=== PATIENT | female | born 1995 | race Caucasian/White ===

== ENCOUNTER 2018-01-26 12:09 | Emergency (ER) | payer OTHER ==
[~2018-01-26] VITALS: Ht 162.6 cm; Wt 77.3 kg
[2018-01-26 12:14] VITALS: BP 149/94; TEMP 97.6
[2018-01-26] MEDS ORDERED: SINGULAIR 110 MG/TAB PO (12:44)
[2018-01-26] MEDS ORDERED: ALDACTONE 25MG25 M1 PO (12:44)
[2018-01-26] MEDS ORDERED: XYZAL5 MG PO (12:44)
[2018-01-26] MEDS ORDERED: LAMICTAL 25MG T25 MG PO (12:45)
[2018-01-26] MEDS ORDERED: AMITRIPTYLINE H25 M1 PO (12:45)
[2018-01-26] MEDS ORDERED: ZOLOFT 25MG25 MG PO (12:46)
[2018-01-26 12:49] LABS: COLLECTION METHOD CLEAN CATCH
[2018-01-26 13:07] LABS: MUCOUS Present /lpf; PH 5 (5-8); URINE APPEARANCE Cloudy; URINE BACTERIA Rare /hpf; URINE BILIRUBIN Negative (NEGATIVE); URINE BLOOD 3+ (NEGATIVE); URINE COLOR Yellow; URINE GLUCOSE Negative (NEGATIVE); URINE KETONE 2+ (NEGATIVE); URINE LEUKOCYTE ESTERASE Negative (NEGATIVE); URINE NITRATE Negative (NEGATIVE); URINE PROTEIN(semi-quant) 1+ (NEGATIVE); URINE UROBILINOGEN Negative (NEGATIVE)
[2018-01-26 13:52] LABS: BASO # 0.1 (0.0-0.2); BASO % 0.5 % (0.0-2.0); EOS # 0.1 (0.0-0.7); EOS % 0.5 % (0-4.0); GRAN # 7.2 (1.4-6.5); GRAN % 75.2 % (42.2-75.2); HEMATOCRIT 49.1 % (37.0-47.0); HEMOGLOBIN 17.3 g/dl (12.5-16.0); LYMPH # 1.7 (1.2-3.4); LYMPH % 17.7 % (20.0-51.0); MEAN CELL VOLUME 87 fl (80.0-100.0); MEAN CORPUSCULAR HEMOGLOBIN 31 pg (27.0-31.0); MEAN CORPUSCULAR HGB CONC 35 g/dl (33.0-37.0); MONO # 0.6 (0.1-0.6); MONO % 5.8 % (1.7-9.3); PLATELET COUNT 370 K/mm3 (130-400); RED BLOOD COUNT 5.64 M/mm3 (4.10-5.30); REDCELL DISTRIBUTION WIDTH-CV 11.6 % (11.5-14.5)
[2018-01-26 14:08] LABS: ALBUMIN 5.4 gm/dL (3.5-5.0); BILIRUBIN,TOTAL 1.9 mg/dL (0.0-1.0); C-REACTIVE PROTEIN 1.1 mg/dL (0.0-0.9); CREATININE, serum 0.78 mg/dL (0.52-1.25)
[2018-01-26 16:02] LABS: COLLECTION METHOD CATHETER
[2018-01-26 16:30] LABS: MUCOUS Present /lpf; PH 6 (5-8); URINE APPEARANCE Clear; URINE BACTERIA None Seen /hpf; URINE BILIRUBIN Negative (NEGATIVE); URINE BLOOD 2+ (NEGATIVE); URINE COLOR Straw; URINE GLUCOSE Negative (NEGATIVE); URINE KETONE 2+ (NEGATIVE); URINE LEUKOCYTE ESTERASE Negative (NEGATIVE); URINE NITRATE Negative (NEGATIVE); URINE PROTEIN(semi-quant) Negative (NEGATIVE); URINE UROBILINOGEN Negative (NEGATIVE)
[2018-01-26] MEDS ORDERED: ZOFRAN ODT4 MG PO (18:01)
[2018-01-26] MEDS ORDERED: PHENERGAN 25 TA25 MG PO (18:01)
[2018-01-26 18:37] VITALS: PULSE 56
== END 2018-01-26 18:37 | disposition home or self-care (01) ==
LOC: COL.ER 12:09
PROVIDERS: Emergency Medicine; Nurse Practitioner
DX: R11.10 Vomiting, unspecified (principal); R10.31 Right lower quadrant pain; J45.909 Unspecified asthma, uncomplicated; F32.9 Major depressive disorder, single episode, unspecified
CPT/HCPCS: J1170; J2405; J2550; J7030; Q9967

== ENCOUNTER 2018-08-30 14:24 | Emergency (ER) | payer SELFPAY ==
[~2018-08-30] VITALS: Ht 162.6 cm; Wt 75.0 kg
[~2018-08-30 14:24] MED LIST: ALDACTONE 25MG25 M1 PO; AMITRIPTYLINE H25 M1 PO; LAMICTAL 25MG T25 MG PO; PHENERGAN 25 TA25 MG PO; SINGULAIR 110 MG/TAB PO; XYZAL5 MG PO; ZOFRAN ODT4 MG PO; ZOLOFT 25MG25 MG PO
[2018-08-30 14:32] VITALS: TEMP 97.6
[2018-08-30 14:49] LABS: COLLECTION METHOD CLEAN CATCH
[2018-08-30 15:16] LABS: BASO # 0.1 (0.0-0.2); BASO % 0.6 % (0.0-2.0); EOS # 0.2 (0.0-0.7); EOS % 1.5 % (0-4.0); GRAN # 8.2 (1.4-6.5); GRAN % 68.2 % (42.2-75.2); HEMATOCRIT 45.4 % (37.0-47.0); HEMOGLOBIN 15.7 g/dl (12.5-16.0); LYMPH # 2.7 (1.2-3.4); LYMPH % 22.6 % (20.0-51.0); MEAN CELL VOLUME 89 fl (80.0-100.0); MEAN CORPUSCULAR HEMOGLOBIN 31 pg (27.0-31.0); MEAN CORPUSCULAR HGB CONC 35 g/dl (33.0-37.0); MEAN PLATELET VOLUME 8.5 fl (7.4-10.4); MONO # 0.8 (0.1-0.6); MONO % 6.8 % (1.7-9.3); PLATELET COUNT 349 K/mm3 (130-400); RED BLOOD COUNT 5.12 M/mm3 (4.10-5.30); REDCELL DISTRIBUTION WIDTH-CV 11.6 % (11.5-14.5)
[2018-08-30 15:24] LABS: AMORPHOUS CRYSTAL Present /uL; MUCOUS Present /lpf; PH 6 (5-8); URINE APPEARANCE Cloudy; URINE BACTERIA Rare /hpf; URINE BILIRUBIN Negative (NEGATIVE); URINE BLOOD Negative (NEGATIVE); URINE COLOR Yellow; URINE GLUCOSE Negative (NEGATIVE); URINE KETONE 2+ (NEGATIVE); URINE LEUKOCYTE ESTERASE Negative (NEGATIVE); URINE NITRATE Negative (NEGATIVE); URINE PROTEIN(semi-quant) Negative (NEGATIVE)
[2018-08-30 15:29] LABS: ALANINE AMINOTRANSFERASE 14 U/L (9-52); ALBUMIN 4.9 gm/dL (3.5-5.0); ALKALINE PHOSPHATASE 71 U/L (50-136); ANION GAP 14 mmol/L (7-16); AST,SGOT 22 U/L (15-37); BILIRUBIN,TOTAL 1.4 mg/dL (0.0-1.0); BLOOD UREA NITROGEN 12 mg/dL (7-17); CARBON DIOXIDE 24 mmol/L (22-30); CHLORIDE 102 mmol/L (98-107); CREATININE, serum 0.69 (0.52-1.25); GLUCOSE 96 mg/dL (74-106); POTASSIUM 4.2 mmol/L (3.4-5.0); SODIUM 140 mmol/L (137-145)
[2018-08-30 15:37] LABS: C-REACTIVE PROTEIN < 0.5 mg/dL (0.0-0.9)
[2018-08-30] MEDS ORDERED: ZOLOFT 50MG50 MG PO (15:56)
[2018-08-30 16:47] VITALS: BP 127/71; PULSE 81
== END 2018-08-30 16:48 | disposition home or self-care (01) ==
LOC: COL.ER 14:24
PROVIDERS: Physician Assistant
DX: O21.9 Vomiting of pregnancy, unspecified (principal); Z3A.00 Weeks of gestation of pregnancy not specified; Z88.1 Allergy status to other antibiotic agents
CPT/HCPCS: J2405; J2550; J7030

== ENCOUNTER 2019-04-18 11:28 | Outpatient (CLI) | payer BC ==
[~2019-04-18] VITALS: Ht 162.6 cm; Wt 89.5 kg
[~2019-04-18 11:28] MED LIST changes: +ZOLOFT 50MG50 MG PO
[2019-04-18 11:36] VITALS: BP 140/82; PULSE 78; TEMP 97.6
[2019-04-18] MEDS ORDERED: PRENATAL TABLET PO (11:36)
--- NOTE | 2019-04-18 11:50 | NUR ---
G1 at 37.3 weeks gestation to LDR2. Patient was sent from the office after she had an ultrasound that showed decreased movement and boarderline low amniotic fluid. Patient is anxious and tearful, plan of care reviewed. Patient changed into gown, wedged to left side in bed. EFMs explained and applied, FHR 140 bpm and reactive. Irregular CTX per toco, patient denies feeling them. VSS. Assessment completed. Patient c/o frequent nausea and vomiting throughout . Patient also states that she felt a gush of fluid yesterday evening. SVE closed/50/high, no fluid noted, amniotrace negative. 1150 Dr. Sanchez to room, FHR strip reviewed, plan of care discussed. Orders to start IV and give 1 liter LR bolus and 8 mg of zofran IV, CBC, CMP, and clean catch UA.
[2019-04-18 12:50] VITALS: BP 142/62; PULSE 80
[2019-04-18 13:00] LABS: COLLECTION METHOD CLEAN CATCH
[2019-04-18 13:04] LABS: BASO % 0.4 % (0.0-2.0); EOS # 0.5 (0.0-0.7); EOS % 4.1 % (0-4.0); GRAN # 8.1 (1.4-6.5); HEMOGLOBIN 10.5 g/dl (12.5-16.0); LYMPH # 1.7 (1.2-3.4); LYMPH % 15.4 % (20.0-51.0); MEAN CELL VOLUME 93 fl (80.0-100.0); MEAN CORPUSCULAR HEMOGLOBIN 31 pg (27.0-31.0); MEAN CORPUSCULAR HGB CONC 34 g/dl (33.0-37.0); MEAN PLATELET VOLUME 9.8 fl (7.4-10.4); MONO # 0.7 (0.1-0.6); MONO % 6.3 % (1.7-9.3); PLATELET COUNT 173 K/mm3 (130-400); RED BLOOD COUNT 3.34 M/mm3 (4.10-5.30); REDCELL DISTRIBUTION WIDTH-CV 12.2 % (11.5-14.5)
[2019-04-18 13:10] LABS: HEMATOCRIT 30.9 % (37.0-47.0)
[2019-04-18 13:12] LABS: PH 7 (5-8); URINE APPEARANCE Clear; URINE BACTERIA Rare /hpf; URINE BILIRUBIN Negative (NEGATIVE); URINE BLOOD 1+ (NEGATIVE); URINE COLOR Yellow; URINE GLUCOSE Negative (NEGATIVE); URINE KETONE 1+ (NEGATIVE); URINE LEUKOCYTE ESTERASE Trace (NEGATIVE); URINE NITRATE Negative (NEGATIVE); URINE PROTEIN(semi-quant) Negative (NEGATIVE); URINE RBC None Seen /hpf; URINE UROBILINOGEN Negative (NEGATIVE)
[2019-04-18 13:15] LABS: ALBUMIN 2.7 gm/dL (3.5-5.0); BILIRUBIN,TOTAL 0.4 mg/dL (0.0-1.0); CALCIUM 8.2 mg/dL (8.4-10.2); CREATININE, serum 0.5 (0.52-1.25); POTASSIUM 3.8 mmol/L (3.4-5.0); TOTAL PROTEIN 5.4 gm/dL (6.4-8.2)
[2019-04-18 13:30] VITALS: BP 121/59; PULSE 66
--- NOTE | 2019-04-18 13:30 | NUR ---
Discharge instructions reviewed. Patient discharged home.
== END 2019-04-18 13:40 | disposition home or self-care (01) ==
LOC: LDRO 11:28 → LDR 12:07 → LDRO 13:40
PROVIDERS: Obstetrics & Gynecology
DX: O36.8130 Decreased fetal movements, third trimester, not applicable or unspecified (principal); Z3A.37 37 weeks gestation of pregnancy
CPT/HCPCS: OP; J2405; J7120

== ENCOUNTER 2019-04-25 01:34 | Outpatient (CLI) | payer BC ==
[2019-04-25] VITALS (8 sets, daily range): BP systolic 111–140; BP diastolic 56–86; PULSE 71–90; TEMP 97.7
[~2019-04-25] VITALS: Ht 162.6 cm; Wt 90.9 kg
[~2019-04-25 01:34] MED LIST changes: +PRENATAL TABLET PO
--- NOTE | 2019-04-25 01:40 | NUR ---
G1 at 38 weeks and 3 days arrives to unit with complaint of sharp abdominal pain. Pt states she has been nauseous the entire and throws up every night. Tonight she is having the sharp pain with vomiting and is worried about the baby. Pt reports baby being in breech position. Pt denies LOF or vaginal bleeding. Reports good movement. Pt oriented to room, bed in low and locked position, call light within reach. Pt changed into clean gown. US and toco explained and applied. Vital signs obtained. Admission assessment started. Dr. Coats on unit, updated on patient status, orders obtained. See physician notification.
--- NOTE | 2019-04-25 05:45 | NUR ---
Pt sleeping upon entering room. Pt reports contractions feel much better and she has been able to sleep through them. Pt ok with being discharged home but would like to finish second bag of lactated ringers before leaving.
--- NOTE | 2019-04-25 06:10 | NUR ---
IV fluids complete. IV removed from right hand, pt tolerated well.
--- NOTE | 2019-04-25 06:30 | NUR ---
Discharge instructions reviewed with patient, pt verbalized understanding. Educated on return precautions. Pt seen ambulating off unit at this time.
== END 2019-04-25 06:30 | disposition home or self-care (01) ==
LOC: LDRO 01:34 → LDR 01:53 → LDRO 06:30
DX: O26.893 Other specified pregnancy related conditions, third trimester (principal); R10.9 Unspecified abdominal pain; Z3A.38 38 weeks gestation of pregnancy
CPT/HCPCS: OP; J7120